=== PATIENT | female | born 1980 | race Caucasian/White ===

== ENCOUNTER 2019-08-28 12:07 | Observation (INO) | payer MEDICAID, MEDICARE ==
[~2019-08-28] VITALS: Ht 172.7 cm; Wt 88.6 kg
[2019-08-28] MEDS ORDERED: BENZTROPINE MESYLATE 2MG/2ML VIAL IM ONE (12:45)
[2019-08-28] MEDS ORDERED: LORazepam 2 MG/ML VIAL (J2060) IV STA (12:47)
[2019-08-28 13:02] LABS: VENOUS BASE EXCESS -5.2 (-2.0-2.0); VENOUS HCO3 21.9 MEQ/L (23.0-27.0); VENOUS O2 SATURATION 80.9 % (60.0-80.0); VENOUS PARTIAL PRESSURE CO2 48.4 mmHg (38.0-50.0); VENOUS PH 7.273 UNITS (7.330-7.430); VENOUS STANDARD HCO3 19.9 MEQ/L; VENOUS TOTAL CO2 23.4 MEQ/L (24.0-28.0)
[2019-08-28 13:11] LABS: BASO % 0.5 % (0.0-1.0); EOS # 0.1 10^3/uL (0.0-0.5); EOS % 2.1 % (0.0-3.0); HEMATOCRIT 42.2 % (36.0-47.0); HEMOGLOBIN 13.9 g/dl (12.0-15.5); LYMPH % 32.9 % (24.0-44.0); MEAN CORPUSCULAR HEMOGLOBIN 31.8 pg (27.0-33.0); MEAN CORPUSCULAR HGB CONC 32.9 g/dl (32.0-36.5); MEAN CORPUSCULAR VOLUME 96.6 fl (80.0-96.0); MONO # 0.3 10^3/uL (0.0-0.8); MONO % 5.1 % (0.0-5.0); NEUTROPHILS # 3.6 10^3/uL (1.5-8.5); NEUTROPHILS % 59.1 % (36.0-66.0); PLATELET COUNT, AUTOMATED 228 10^3/uL (150-450); RED BLOOD COUNT 4.37 10^6/uL (4.00-5.40); WHITE BLOOD COUNT 6.1 10^3/uL (4.0-10.0)
[2019-08-28] MEDS ORDERED: LEXA1TAB PO (13:18)
[2019-08-28] MEDS ORDERED: ZYPR2.5T2 PO (13:18)
[2019-08-28] MEDS ORDERED: WELLTAB38 PO (13:19)
[2019-08-28 13:30] LABS: AMPHETAMINES LEVEL URINE NEGATIVE (NEGATIVE); BARBITURATES URINE NEGATIVE (NEGATIVE); BENZODIAZEPINES URINE NEGATIVE (NEGATIVE); CANNABINOIDS URINE NEGATIVE (NEGATIVE); COCAINE METABOLITE URINE NEGATIVE (NEGATIVE); METHADONE URINE NEGATIVE (NEGATIVE); OPIATES URINE NEGATIVE (NEGATIVE); PHENCYCLIDINE URINE NEGATIVE (NEGATIVE)
[2019-08-28 13:37] LABS: HCG, SERUM QUALITATIVE NEGATIVE (NEGATIVE)
[2019-08-28 13:41] LABS: OSMOLALITY SERUM 290 MOSM/KG (275-295)
[2019-08-28 13:50] LABS: ACETAMINOPHEN LEVEL < 2.0 UG/ML (10.0-30.0); ALBUMIN 4.1 GM/DL (3.2-5.2); ALT/SGPT 68 U/L (12-78); BILIRUBIN,DIRECT < 0.1 MG/DL (0.0-0.2); BILIRUBIN,TOTAL 0.4 MG/DL (0.2-1.0); BLOOD UREA NITROGEN 11 MG/DL (7-18); CALCIUM LEVEL 9.2 MG/DL (8.5-10.1); CARBON DIOXIDE LEVEL 26 MEQ/L (21-32); CHLORIDE LEVEL 108 MEQ/L (98-107); CK-MB VALUE MASS < 1.0 NG/ML (<3.6); CPK CREATINE PHOSPHOKINASE 133 U/L (26-192); CREATININE FOR GFR 0.97 MG/DL (0.55-1.30); ETHYL ALCOHOL (ETHANOL) < 0.003 % (0.000-0.010); GLOMERULAR FILTRATION RATE > 60.0 (>60); GLUCOSE, FASTING 99 MG/DL (70-100); MB/CK RELATIVE INDEX 0.75 (< OR =4); POTASSIUM SERUM 4.2 MEQ/L (3.5-5.1); SALICYLATE LEVEL < 1.7 MG/DL (5.0-30.0); SODIUM LEVEL 139 MEQ/L (136-145); THYROID STIMULATING HORMONE 0.701 uIU/ML (0.358-3.740); TOTAL PROTEIN 7.7 GM/DL (6.4-8.2); TROPONIN I < 0.02 NG/ML (< 0.10)
--- NOTE | 2019-08-28 14:26 | REP ---
Head CT without contrast: History: Altered mental status. Comparison study: No comparison study. CT findings: Bone window settings demonstrate an intact bony calvarium. There is no evidence of skull fracture or incidental bony calvarial lesion. The visualized paranasal sinuses appear clear. No intraorbital abnormality is seen. On soft tissue window setting images; the lateral, third, and fourth ventricles are normal in size and position. Morales-white differentiation pattern is normal above and below the tentorium. There is physiologic calcification of the basal ganglia bilaterally. There are is no evidence of intracranial hemorrhage. No mass, edema, infarction, or midline shift is seen. No extra-axial fluid collection is appreciated. Impression: Negative noncontrast head CT. Electronically Signed by Taqueria Fraser MD 08/28/2019 02:17 P
[2019-08-28] MEDS ORDERED: NS 1,000 ML IV ONE (14:30)
--- NOTE | 2019-08-28 14:30 | REP ---
Portable chest x-ray: Single view. History: Altered mental status. Findings: The lungs are symmetrically aerated and clear. Pleural angles are sharp. Heart is not enlarged. Monitoring electrodes overlie the chest. Pulmonary vasculature is not increased. Impression: No active disease. Electronically Signed by Taqueria Fraser MD 08/28/2019 02:21 P
[2019-08-28] MEDS ORDERED: OXYB-54 PO (14:51)
[2019-08-28] MEDS ORDERED: IBUP200T45 PO (14:51)
[2019-08-28] MEDS ORDERED: BUPR1TAB52 PO (14:51)
[2019-08-28] MEDS ORDERED: PROP10TA56 PO (14:52)
--- NOTE | 2019-08-28 16:10 | HPEPDOC ---
[facility] Medical History & Physical Date of Admission Aug 28, 2019 Date of Service: Aug 28, 2019 History and Physical CHIEF COMPLAINT: anxiety HISTORY OF PRESENT ILLNESS: 38 yo female resident of [place] presents for episode of anxiety with involuntary spastic movement. Patient states she returned about one week ago from a conference in [place]. On the way back, she states she had a panic attack with delusions of persecution. Apparently Zyprexa and Wellbutrin were started by her provider. She states she had a similar panic attack about one year ago. She noted having a cough only while in her hotel room, with the heater on. No cough at any other time. She denies any sick contacts, other than her mother's boyfriend who was diagnosed with bronchitis two weeks ago. Denies chest pain, headaches, abdominal pain, N/V/D. Contacted [facility] - [phone] - spoke with nurse Cole. She states she was at their office today, and was sent to the ED for a panic attack. States there was an episode one week ago, with involuntarily flailing of her arms. She contacted the clinic, and at that her Wellbutrin was discontinued. Her Lexapro is currently being tapered down. In the office today, she was also having auditory hallucinations. Notes she was recently hospitalized 07/28/19 at [facility] psychiatric facility for panic attack/hallucinations. Further discussion with her mother - [phone], she states she had a manic type incident 3 years ago in [place], where she was hospitalized, and discharged with a diagnosis of paranoid schizophrenia. She didn't like the adverse effects of the medications, and slowly stopped taking them. She went to a conference on 08/18/19 in [place], as an advocate for [facility]. However after one day, the conference was cancelled due to the current concerns for infection. On her way home, she had a panic attack, and was admitted to a hospital in [place]. Her mother went to pick her up. Her psychiatrist was contacted, with changes to her meds. Her mother insists that propranolol was to be started today, wellbutrin and zyprexa were to be discontinued, and lexapro continued. She seems to be a reliable historian. Her mother also confirms that her daughter has had no upper respiratory type symptoms. PAST MEDICAL HISTORY: #urinary retention/spasticity? #psych history - schizophrenia? ALLERGIES: Please see below. REVIEW OF SYSTEMS: Negative except as per HPI. HOME MEDICATIONS: Please see below. PHYSICAL EXAMINATION: VITAL SIGNS: See below General: NAD, lying comfortably in bed HEENT: NC/AT, EOMI, PERRL Lungs: CTA B/L Heart: +S1S2, RRR Abd: soft, obese, NT, +BS Ext: no edema LABORATORY DATA: See below. MICROBIOLOGY: Please see below. ASSESSMENT: 38 yo female with psych history presents for what appears to be anxiety/panic attack, and spastic movements. Follows at [facility] with Dr. Brenda Oconnell. #anxiety - continue home meds, consider ativan as needed - d/w psych - recs for o/p f/u - continue propranolol and lexapro #spastic movements - concern for serotonin syndrome - d/w psych - states dosages are far too low for serotonin syndrome - recommending o/p f/u #URI - appears to be very unlikely - she states her cough was only in her hotel room with the heater on - likely environmental irritants/allergy for her cough - denies SOB, or contacts with known COVID-19 - respiratory panel pending - CXR WNL #DVT prophylaxis - mechanical Dispo: admitting for observation, anticipate discharge in 24 hours Vital Signs Vital Signs Date Time Temp Pulse Resp B/P (MAP) Pulse Ox O2 Delivery O2 Flow Rate FiO2 08/28/19 15:30 67 16 129/63 (85) 97 Room Air 08/28/19 15:13 98.3 Laboratory Data Labs 24H Laboratory Tests 2 08/28/19 12:46: Urine Color YELLOW, Urine Appearance CLEAR, Urine pH 6.0, Urine Specific [place] 1.006, Urine Protein NEGATIVE, Urine Glucose (UA) NEGATIVE, Urine Ketones NE GATIVE, Urine Blood NEGATIVE, Urine Nitrite NEGATIVE, Urine Bilirubin NEGATIVE, Urine Urobilinogen 0.2, Urine Leukocyte Esterase NEGATIVE, Urine WBC (Auto) 0, Urine RBC (Auto) 1, Urine Hyaline Casts (Auto) 0, Urine Bacteria (Auto) NEGATIVE, Urine Squamous Epithelial Cells 0, Urine Mucus (Auto) SMALL, Urine Sperm (Auto) 08/28/19 12:47: Immature Granulocyte % (Auto) 0.3, Neutrophils (%) (Auto) 59.1, Lymphocytes (%) (Auto) 32.9, Monocytes (%) (Auto) 5.1H, Eosinophils (%) (Auto) 2.1, Basophils (%) (Auto) 0.5, Neutrophils # (Auto) 3.6, Lymphocytes # (Auto) 2.0, Monocytes # (Auto) 0.3, Eosinophils # (Auto) 0.1, Basophils # (Auto) 0.0, Nucleated Red Blood Cells % (auto) 0.0, Blood Gas Bicarbonate Standard 19.9, Venous Blood pH 7.273L, Venous Blood Partial Pressure CO2 48.4, Venous Blood Partial Pressure O2 50.0, Venous Blood Total Carbon Dioxide 23.4L, Venous Blood HCO3 21.9L, Venous Blood Oxygen Saturation 80.9H, Venous Blood Base Excess -5.2L, Anion Gap 5L, Glomerular Filtration Rate > 60.0, Osmolality 290, Lactic Acid Level 3.2*H, Calcium Level 9.2, Total Bilirubin 0.4, Direct Bilirubin < 0.1, Aspartate Amino Transf (AST/SGOT) 50H, Alanine Aminotransferase (ALT/SGPT) 68, Alkaline Phosphatase 62, Ammonia < 10, Total Creatine Kinase 133, Creatine Kinase MB < 1.0, Creatine Kinase MB Relative Index 0.75, Troponin I < 0.02, Total Protein 7.7, Albumin 4.1, Albumin/Globulin Ratio 1.14, Thyroid Stimulating Hormone (TSH) 0.701, Human Chorionic Gonadotropin, Qual NEGATIVE, Salicylates Level < 1.7L, Urine Opiates Screen NEGATIVE, Urine Methadone Screen NEGATIVE, Acetaminophen Level < 2.0L, Urine Barbiturates Screen NEGATIVE, Urine Phencyclidine Screen NEGATIVE, Urine Amphetamines Screen NEGATIVE, Urine Benzodiazepines Screen NEGATIVE, Urine Cocaine Metabolite Screen NEGATIVE, Urine Cannabinoids Screen NEGATIVE, Ethyl Alcohol Level < 0.003 CBC/BMP Laboratory Tests 08/28/19 12:47 Microbiology Microbiology 08/28/19 Respiratory Virus Panel (PCR) (MARCELA) - Final, Complete 08/28/19 Blood Culture, Received Pending 08/28/19 Blood Culture, Received Pending Home Medications Scheduled Bupropion HCl (Bupropion HCl Sr) 100 Mg Tab.sr.12h, 100 MG PO DAILY patients mom states she has not taken in a week Escitalopram Oxalate (Lexapro) 10 Mg Tablet, 10 MG PO DAILY Olanzapine (Zyprexa) 2.5 Mg Tablet, 2.5 MG PO DAILY Oxybutynin Chloride (Oxybutynin Chloride ER) 5 Mg Tab.er.24, 5 MG PO DAILY Propranolol HCl (Propranolol HCl) 10 Mg Tablet, 10 MG PO TID new med not started yet Scheduled PRN Ibuprofen (Ibu-200) 200 Mg Tablet, 400 MG PO Q4H PRN for PAIN Allergies Coded Allergies: No Known Allergies (Verified Allergy, Unknown, 08/28/19) A-FIB/CHADSVASC A-FIB History Current/History of A-Fib/PAF?: No Current PO Anticoag Therapy: No LIZ LAZO MD Aug 28, 2019 16:10
[2019-08-28] MEDS: PROPRANOLOL 10 MG TAB PO SCH ×2 (18:11→21:56)
[2019-08-28 22:00] VITALS: BP 147/87
[2019-08-28] MEDS ORDERED: LORazepam 0.5 MG TAB PO PRN (22:45)
[2019-08-28 23:20] VITALS: BP 147/87
[2019-08-29] MEDS ORDERED: HALOPERIDOL 5MG/ML VIAL (J1630 PER 1) IM PRN (01:15)
[2019-08-29] MEDS ORDERED: METOCLOPRAMIDE INJ 10MG/2ML VIAL (J2765 PER 1) IV ONE (04:15)
[2019-08-29 05:54] LABS: HEMATOCRIT 42.1 % (36.0-47.0); HEMOGLOBIN 14.5 g/dl (12.0-15.5); MEAN CORPUSCULAR HEMOGLOBIN 32.9 pg (27.0-33.0); MEAN CORPUSCULAR HGB CONC 34.4 g/dl (32.0-36.5); MEAN CORPUSCULAR VOLUME 95.5 fl (80.0-96.0); PLATELET COUNT, AUTOMATED 211 10^3/uL (150-450); RED BLOOD COUNT 4.41 10^6/uL (4.00-5.40)
[2019-08-29 06:00] VITALS: BP 122/75
[2019-08-29 06:20] LABS: ALBUMIN 3.6 GM/DL (3.2-5.2); ALT/SGPT 68 U/L (12-78); BILIRUBIN,TOTAL 0.5 MG/DL (0.2-1.0); BLOOD UREA NITROGEN 10 MG/DL (7-18); CALCIUM LEVEL 8.5 MG/DL (8.5-10.1); CARBON DIOXIDE LEVEL 23 MEQ/L (21-32); CHLORIDE LEVEL 111 MEQ/L (98-107); CREATININE FOR GFR 0.75 MG/DL (0.55-1.30); GLOMERULAR FILTRATION RATE > 60.0 (>60); GLUCOSE, FASTING 127 MG/DL (70-100); POTASSIUM SERUM 3.6 MEQ/L (3.5-5.1); SODIUM LEVEL 138 MEQ/L (136-145); TOTAL PROTEIN 7.6 GM/DL (6.4-8.2)
[2019-08-29] MEDS ORDERED: INFLUENZA QUADRIVALENT PF VACCINE 0.5ML SYRINGE (90686) IM ONE ×2 (09:00→13:00)
[2019-08-29] MEDS ORDERED: OLANZapine 2.5MG TABLET PO SCH (09:00)
[2019-08-29] MEDS ORDERED: buPROPion (WELLBUTRIN SR) 100 MG SR TAB PO SCH (09:00)
[2019-08-29] MEDS ORDERED: oxyBUTYnin *DITROPAN XL* 5 MG TABCR PO SCH (09:00)
[2019-08-29] MEDS ORDERED: ESCITALOPRAM OXALATE 10 MG TAB (LEXAPRO) PO SCH ×2 (09:00)
[2019-08-29 09:25] VITALS: BP 125/77
[2019-08-29] MEDS: PROPRANOLOL 10 MG TAB PO SCH (09:25)
--- NOTE | 2019-08-29 10:39 | MHCRPDOC ---
[facility] Consultation Consultation Consult Luci Maldonado MRN: N/A Date of : N/A Date of Service: 08/29/2019 Chief Complaint "I do not want to get the coronavirus." History of Present Illness The patient a 38-year-old woman is admitted to medicine after reportedly having a panic attack. She was admitted out of abundance of caution. She reports some flailing behavior and concerns for serotonin syndrome as she had been recently started on a combination of antidepressants by her outpatient psychiatrist. When the patient was met with she reported that she had had some anxiety about the current situation. The medical team ruled out serotonin storm and wanted a quick consultation about her medications, which her outpatient had recommended be reduced to Lexapro. The patient reports that all of her psychiatric symptoms other than anxiety are stable at this time. She reportedly had a panic attack for several minutes where she was worried about being chased by police several days ago prior to her returning to the area from a conference. This was after she was started on Wellbutrin and Zyprexa. These were discontinued and the symptoms reportedly improved. Collateral information gathered by the medical team report that the patient has had some involuntarily flailing of her arms. Review Of Systems Depression: Reports episodes of depression in the past, but no current ones. Anxiety: The patient denies any excessive worry associated with physical symptoms. They deny any experience of discreet panic in the past. Karla: Reportedly has a history of karla in the past, however, vague and ill described. Psychotic: Report episodes of auditory hallucinations in the past, but none currently. Trauma: The patient denies any traumatic events associated with nightmares or intrusive thoughts. Borderline: The patient screens negative for borderline personality at this junction. Past Psychiatric History Reportedly has been hospitalized 5 times in [place] and no records available last 3 years ago for reported "karla". Currently treated with Lexapro by Brenda Oconnell at [facility]. Denies any significant safety issues at this time, reports having ideation in the distant past. Chart review reveals a hospitalization in July for panic attacks at [facility]. Family Psychiatric History The patient denies/is unaware any history of mental health history including addictions and suicide. Social History The patient lives in the local area. She reports that she has no significant dr ug use, alcohol use or tobacco use at this time. Medical History Patient has no significant past medical history. Allergies See below Mental Status Examination General: Well dressed with good hygiene Speech: Spontaneous and fluid Thought processes: Linear and logical MSK: Smooth and coordinated gait, no signs of tremors or involuntary orofacial movements Thought content: Future orientated Abstract reasoning, and computation: Intact Description of associations: Intact Description of abnormal or psychotic thoughts: Denies any suicidal or homicidal ideation. Denies any auditory or visual hallucinations. Does not appear to be responding to internal stimuli. Does not appear to be endorsing any bizarre or paranoid ideation. Judgment: fair Insight: fair Orientation: Alert and orientated 3 Cognition: Grossly normal Recent and remote memory: Intact Attention span and concentration: Intact Fund of knowledge: Adequate Mood: "okay" Affect: Euthymic with a full range Diagnoses Unspecified anxiety disorder versus conversion. Assessment and Plan The patient is a 38-year-old woman presents for medical evaluation of involuntarily flailing of her arms, at this time it does not appear to be serotonin storm as is ruled out and she is medically stable. She reportedly has a diagnosis of paranoid schizophrenia, however, when I spoke to her she did not demonstrate any signs of psychosis as she has been reduced down to Lexapro at this time. She has screened positive for possibly affective psychosis in the past, however, she reports that currently her symptoms are at baseline. She states that at times she will have auditory hallucinations, but they are at thei r chronic baseline and she is not having them currently while in the room. The presenting complaint appears primarily related to anxiety versus conversion disorder, however, outpatient psychometry will be needed to determine ultimate diagnosis. The patient prefers to have her outpatient psychiatrist manage her medications and she is not interested in having them altered. The patient at this time does not meet involuntary criteria as she is not suicidal, homicidal and she gives me no objective signs of psychosis at this time, auditory hallucinations in individuals with borderline personality disorder can be frequently mislabeled, which could be a diagnostic possibility, however, at this time she is unwilling to stay in the hospital as she does not want to get the coronavirus. I believe due to the factors above and her normal mental status exam that she does not meet involuntary criteria and declines a voluntary admission and thus must be discharged in good norm. I additionally agree with her at this time that her risk and benefits of staying in the hospital is not ideal given her fear of the coronavirus and being in a communal unit, recommended close followup with her outpatient psychiatrist who she will be seen via telehealth in the next few days. Disposition No psychiatric inpatient treatment recommended, patient does not want medication adjustment. Time Spent 30 minutes. Sunday Vital Signs Vital Signs Date Time Temp Pulse Resp B/P (MAP) Pulse Ox O2 Delivery O2 Flow Rate FiO2 08/29/19 09:25 86 125/77 08/29/19 06:00 98.0 17 96 Room Air Laboratory Data 24H Labs Laboratory Tests 2 08/28/19 12:46: Urine Color YELLOW, Urine Appearance CLEAR, Urine pH 6.0, Urine Specific [place] 1.006, Urine Protein NEGATIVE, Urine Glucose (UA) NEGATIVE, Urine Ketones NEGATIVE, Urine Blood NEGATIVE, Urine Nitrite NEGATIVE, Urine Bilirubin NEGATIVE, Urine Urobilinogen 0.2, Urine Leukocyte Esterase NEGATIVE, Urine WBC (Auto) 0, Urine RBC (Auto) 1, Urine Hyaline Casts (Auto) 0, Urine Bacteria (Auto) NEGATIVE, Urine Squamous Epithelial Cells 0, Urine Mucus (Auto) SMALL, Urine Sperm (Auto) 08/28/19 12:47: Immature Granulocyte % (Auto) 0.3, Neutrophils (%) (Auto) 59.1, Lymphocytes (%) (Auto) 32.9, Monocytes (%) (Auto) 5.1H, Eosinophils (%) (Auto) 2.1, Basophils (%) (Auto) 0.5, Neutrophils # (Auto) 3.6, Lymphocytes # (Auto) 2.0, Monocytes # (Auto) 0.3, Eosinophils # (Auto) 0.1, Basophils # (Auto) 0.0, Nucleated Red Blood Cells % (auto) 0.0, Blood Gas Bicarbonate Standard 19.9, Venous Blood pH 7.273L, Venous Blood Partial Pressure CO2 48.4, Venous Blood Partial Pressure O2 50.0, Venous Blood Total Carbon Dioxide 23.4L, Venous Blood HCO3 21.9L, Venous Blood Oxygen Saturation 80.9H, Venous Blood Base Excess -5.2L, Anion Gap 5L, Glomerular Filtration Rate > 60.0, Osmolality 290, Lactic Acid Level 3.2*H, Calcium Level 9.2, Total Bilirubin 0.4, Direct Bilirubin < 0.1, Aspartate Amino Transf (AST/SGOT) 50H, Alanine Aminotransferase (ALT/SGPT) 68, Alkaline Phosphatase 62, Ammonia < 10, Total Creatine Kinase 133, Creatine Kinase MB < 1.0, Creatine Kinase MB Relative Index 0.75, Troponin I < 0.02, Total Protein 7.7, Albumin 4.1, Albumin/Globulin Ratio 1.14, Thyroid Stimulating Hormone (TSH) 0.701, Human Chorionic Gonadotropin, Qual NEGATIVE, Salicylates Level < 1.7L, Urine Opiates Screen NEGATIVE, Urine Methadone Screen NEGATIVE, Acetaminophen Level < 2.0L, Urine Barbiturates Screen NEGATIVE, Urine Phencyclidine Screen NEGATIVE, Urine Amphetamines Screen NEGATIVE, Urine Benzodiazepines Screen NEGATIVE, Urine Cocaine Metabolite Screen NEGATIVE, Urine Cannabinoids Screen NEGATIVE, Ethyl Alcohol Level < 0.003 08/28/19 17:40: Lactic Acid Followup at 4 Hours 1.1 08/29/19 05:21: Nucleated Red Blood Cells % (auto) 0.0, Anion Gap 4L, Glomerular Filtration Rate > 60.0, Calcium Level 8.5, Total Bilirubin 0.5, Aspartate Amino Transf (AST/SGOT) 45H, Alanine Aminotransferase (ALT/SGPT) 68, Alkaline Phosphatase 61, Total Protein 7.6, Albumin 3.6, Albumin/Globulin Ratio 0.90L Home Medications Current Medications Current Medications Medications (Trade) Dose Ordered Sig/Rosanna Route PRN Reason Start Time Stop Time Status Last Admin Dose Admin Bupropion HCl (Wellbutrin Sr) 100 mg DAILY PO 08/29/19 09:00 08/28/19 16:24 DC Escitalopram Oxalate (Lexapro) 10 mg DAILY PO 08/29/19 09:00 08/28/19 16:28 DC Escitalopram Oxalate (Lexapro) 10 mg DAILY PO 08/29/19 09:00 08/29/19 09:23 Haloperidol (Haldol) 2 mg Q4HP PRN IM AGITATION 08/29/19 01:15 08/29/19 01:36 Home Med (Med Rec Complete!) ASDIRECTED XX 08/28/19 15:00 08/28/19 14:54 DC Lorazepam (Ativan) 0.5 mg Q6HP PRN PO ANXIETY 08/28/19 22:45 08/29/19 01:05 Lorazepam (Ativan) 1 mg STAT STAT IV 08/28/19 12:47 08/28/19 12:48 DC 08/28/19 12:53 Olanzapine (ZyPREXA) 2.5 mg DAILY PO 08/29/19 09:00 08/28/19 16:48 DC Oxybutynin Chloride (Ditropan Xl) 5 mg DAILY PO 08/29/19 09:00 08/29/19 09:23 Propranolol HCl (Inderal) 10 mg TID PO 08/28/19 16:00 08/29/19 09:25 Scheduled Escitalopram Oxalate (Lexapro) 10 Mg Tablet, 10 MG PO DAILY, (Reported) Oxybutynin Chloride (Oxybutynin Chloride ER) 5 Mg Tab.er.24, 5 MG PO DAILY, (Reported) Propranolol HCl (Propranolol HCl) 10 Mg Tablet, 10 MG PO TID, (Reported) new med not started yet Scheduled PRN Ibuprofen (Ibu-200) 200 Mg Tablet, 400 MG PO Q4H PRN for PAIN, (Reported) Allergies Coded Allergies: No Known Allergies (Verified Allergy, Unknown, 08/28/19) DEONNA FALCON DO Aug 29, 2019 10:39
--- NOTE | 2019-08-29 11:52 | DS.PDOC ---
Discharge Summary General Date of Admission Aug 28, 2019 at 12:08 Date of Discharge 08/29/19 Specialist/Consultants Involve: DEONNA FALCON DO Discharge Summary PROCEDURES PERFORMED DURING STAY: [None]. ADMITTING DIAGNOSES: 1. anxiety DISCHARGE DIAGNOSES: 1. possible somatic disorder COMPLICATIONS/CHIEF COMPLAINT: Anxiety. HOSPITAL COURSE: Patient presented for anxiety attack, muscle spasms, involuntarily movements. Admitted for further evaluation and treatment. Discussed at length with psychiatry and her family. Deemed safe for discharge home with outpatient follow up - likely somatic disorder at this time. DISCHARGE MEDICATIONS: Please see below. ALLERGIES: Please see below. PHYSICAL EXAMINATION ON DISCHARGE: VITAL SIGNS: Please see below. GENERAL: NAD HEENT: NC/AT, EOMI, PERRL Lungs: CTA B/L Heart: +S1S2, RRR Abd: soft, NT, +BS Ext: no edema LABORATORY DATA: Please see below. ACTIVITY: [As tolerated]. DISPOSITION: Discharge home DISCHARGE INSTRUCTIONS: 1. Follow up with psychiatry in 3-5 days or as scheduled. 2. PCP in 3-5 days. DISCHARGE CONDITION: [Stable]. TIME SPENT ON DISCHARGE: 35 minutes. Vital Signs/I&Os Vital Signs Date Time Temp Pulse Resp B/P (MAP) Pulse Ox O2 Delivery O2 Flow Rate FiO2 08/29/19 09:25 86 125/77 08/29/19 06:00 98.0 17 96 Room Air I&O- Last 24 Hours up to 6 AM 08/29/19 06:00 Intake Total 2467 ml Balance 2467 ml Laboratory Data Labs 24H Laboratory Tests 2 08/28/19 12:46: Urine Color YELLOW, Urine Appearance CLEAR, Urine pH 6.0, Urine Specific [place] 1.006, Urine Protein NEGATIVE, Urine Glucose (UA) NEGATIVE, Urine Ketones NEGATIVE, Urine Blood NEGATIVE, Urine Nitrite NEGATIVE, Urine Bilirubin NEGATIVE, Urine Urobilinogen 0.2, Urine Leukocyte Esterase NEGATIVE, Urine WBC (Auto) 0, Urine RBC (Auto) 1, Urine Hyaline Casts (Auto) 0, Urine Bacteria (Auto) NEGATIVE, Urine Squamous Epithelial Cells 0, Urine Mucus (Auto) SMALL, Urine Sperm (Auto) 08/28/19 12:47: Immature Granulocyte % (Auto) 0.3, Neutrophils (%) (Auto) 59.1, Lymphocytes (%) (Auto) 32.9, Monocytes (%) (Auto) 5.1H, Eosinophils (%) (Auto) 2.1, Basophils (%) (Auto) 0.5, Neutrophils # (Auto) 3.6, Lymphocytes # (Auto) 2.0, Monocytes # (Auto) 0.3, Eosinophils # (Auto) 0.1, Basophils # (Auto) 0.0, Nucleated Red Blood Cells % (auto) 0.0, Blood Gas Bicarbonate Standard 19.9, Venous Blood pH 7.273L, Venous Blood Partial Pressure CO2 48.4, Venous Blood Partial Pressure O2 50.0, Venous Blood Total Carbon Dioxide 23.4L, Venous Blood HCO3 21.9L, Venous Blood Oxygen Saturation 80.9H, Venous Blood Base Excess -5.2L, Anion Gap 5L, Glomerular Filtration Rate > 60.0, Osmolality 290, Lactic Acid Level 3.2*H, Calcium Level 9.2, Total Bilirubin 0.4, Direct Bilirubin < 0.1, Aspartate Amino Transf (AST/SGOT) 50H, Alanine Aminotransferase (ALT/SGPT) 68, Alkaline Phosphatase 62, Ammonia < 10, Total Creatine Kinase 133, Creatine Kinase MB < 1.0, Creatine Kinase MB Relative Index 0.75, Troponin I < 0.02, Total Protein 7.7, Albumin 4.1, Albumin/Globulin Ratio 1.14, Thyroid Stimulating Hormone (TSH) 0.701, Human Chorionic Gonadotropin, Qual NEGATIVE, Salicylates Level < 1.7L, Urine Opiates Screen NEGATIVE, Urine Methadone Screen NEGATIVE, Acetaminophen Level < 2.0L, Urine Barbiturates Screen NEGATIVE, Urine Phencyclidine Screen NEGATIVE, Urine Amphetamines Screen NEGATIVE, Urine Benzodiazepines Screen NEGATIVE, Urine Cocaine Metabolite Screen NEGATIVE, Urine Cannabinoids Screen NEGATIVE, Ethyl Alcohol Level < 0.003 08/28/19 17:40: Lactic Acid Followup at 4 Hours 1.1 08/29/19 05:21: Nucleated Red Blood Cells % (auto) 0.0, Anion Gap 4L, Glomerular Filtration Rate > 60.0, Calcium Level 8.5, Total Bilirubin 0.5, Aspartate Amino Transf (AST/SGOT) 45H, Alanine Aminotransferase (ALT/SGPT) 68, Alkaline Phosphatase 61, Total Protein 7.6, Albumin 3.6, Albumin/Globulin Ratio 0.90L CBC/BMP Laboratory Tests 08/28/19 12:47 08/29/19 05:21 Microbiology Microbiology 08/28/19 Respiratory Virus Panel (PCR) (MARCELA) - Final, Complete 08/28/19 Blood Culture, Received Pending 08/28/19 Blood Culture, Received Pending Discharge Medications Scheduled Escitalopram Oxalate (Lexapro) 10 Mg Tablet, 10 MG PO DAILY, (Reported) Oxybutynin Chloride (Oxybutynin Chloride ER) 5 Mg Tab.er.24, 5 MG PO DAILY, (Reported) Propranolol HCl (Propranolol HCl) 10 Mg Tablet, 10 MG PO TID, (Reported) new med not started yet Scheduled PRN Ibuprofen (Ibu-200) 200 Mg Tablet, 400 MG PO Q4H PRN for PAIN, (Reported) Allergies Coded Allergies: No Known Allergies (Verified Allergy, Unknown, 08/28/19) LIZ LAZO MD Aug 29, 2019 11:52
--- NOTE | 2019-08-29 18:37 | ECGEPIP ---
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
== END 2019-08-29 13:37 | disposition home or self-care (01) ==
LOC: M ED 12:07 → EDBD 12:07 → M ED INP 12:08 → ENRESERV 15:54 → M MSPAV 17:00
PROVIDERS: ADMIT Internal Medicine; ATTEND Internal Medicine
DX: F41.9 Anxiety disorder, unspecified (principal); M62.838 Other muscle spasm; R25.9 Unspecified abnormal involuntary movements; R05 Cough; F99 Mental disorder, not otherwise specified; Z79.899 Other long term (current) drug therapy
CPT/HCPCS: 36415; 70450; 71045; 80048; 80053; 80076; 80307; 81001; 82140; 82550; 82553; 82803; 83605; 83930; 84145; 84443; 84484; 84703; 85025; 85027; 87040; 87486; 87581; 87633; 87798; 93005; 93041; 96361; 96372; 96374; 96375; 99285; G0378; G0480; J1630; J2060; J2765

== ENCOUNTER 2019-10-13 12:11 | Emergency (ER) | payer MEDICARE ==
[~2019-10-13] VITALS: Ht 172.7 cm; Wt 90.0 kg
[~2019-10-13 12:11] MED LIST: BUPR1TAB52 PO; IBUP200T45 PO; LEXA1TAB PO; OXYB-54 PO; PROP10TA56 PO; WELLTAB38 PO; ZYPR2.5T2 PO
[2019-10-13] MEDS ORDERED: OLAN5TAB PO (12:33)
[2019-10-13] MEDS ORDERED: ZYPR5TAB2 PO (12:33)
[2019-10-13] MEDS ORDERED: LAMO25TA4 PO (12:33)
[2019-10-13] MEDS ORDERED: HYDR-3363 PO (12:33)
[2019-10-13] MEDS ORDERED: ESCI10TA2 PO (12:33)
[2019-10-13] MEDS ORDERED: ALPRAZolam 0.5 MG TAB PO ONE (13:15)
[2019-10-13 13:47] LABS: HEMATOCRIT 40.6 % (36.0-47.0); HEMOGLOBIN 13.7 g/dl (12.0-15.5); MEAN CORPUSCULAR HEMOGLOBIN 31.4 pg (27.0-33.0); MEAN CORPUSCULAR HGB CONC 33.7 g/dl (32.0-36.5); MEAN CORPUSCULAR VOLUME 92.9 fl (80.0-96.0); PLATELET COUNT, AUTOMATED 222 10^3/uL (150-450); RED BLOOD COUNT 4.37 10^6/uL (4.00-5.40); WHITE BLOOD COUNT 6.9 10^3/uL (4.0-10.0)
[2019-10-13 14:19] LABS: HCG, SERUM QUALITATIVE NEGATIVE (NEGATIVE)
[2019-10-13 14:29] LABS: BLOOD UREA NITROGEN 12 MG/DL (7-18); CALCIUM LEVEL 9.1 MG/DL (8.5-10.1); CARBON DIOXIDE LEVEL 25 MEQ/L (21-32); CHLORIDE LEVEL 107 MEQ/L (98-107); CREATININE FOR GFR 0.89 MG/DL (0.55-1.30); GLOMERULAR FILTRATION RATE > 60.0 (>60); GLUCOSE, FASTING 94 MG/DL (70-100); POTASSIUM SERUM 4.1 MEQ/L (3.5-5.1); SODIUM LEVEL 141 MEQ/L (136-145)
[2019-10-13 14:30] LABS: ACETAMINOPHEN LEVEL < 2.0 UG/ML (10.0-30.0); ALBUMIN 3.8 GM/DL (3.2-5.2); ALT/SGPT 30 U/L (12-78); BILIRUBIN,DIRECT 0.1 MG/DL (0.0-0.2); BILIRUBIN,TOTAL 0.5 MG/DL (0.2-1.0); ETHYL ALCOHOL (ETHANOL) < 0.003 % (0.000-0.010); SALICYLATE LEVEL < 1.7 MG/DL (5.0-30.0); TOTAL PROTEIN 7.1 GM/DL (6.4-8.2)
[2019-10-13] MEDS ORDERED: LIDOCAINE 2% 5ML JELLY UROJET TOP ONE (16:15)
[2019-10-13 17:24] LABS: AMPHETAMINES LEVEL URINE NEGATIVE (NEGATIVE); BARBITURATES URINE NEGATIVE (NEGATIVE); BENZODIAZEPINES URINE POSITIVE (NEGATIVE); CANNABINOIDS URINE NEGATIVE (NEGATIVE); COCAINE METABOLITE URINE NEGATIVE (NEGATIVE); METHADONE URINE NEGATIVE (NEGATIVE); OPIATES URINE NEGATIVE (NEGATIVE); PHENCYCLIDINE URINE NEGATIVE (NEGATIVE)
--- NOTE | 2019-10-13 18:44 | ECGEPIP ---
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
[2019-10-13] MEDS ORDERED: lamoTRIgine 25 MG TAB PO ONE (20:00)
[2019-10-13] MEDS ORDERED: OLANZapine 5 MG TAB PO ONE (20:00)
[2019-10-13] MEDS ORDERED: PROPRANOLOL 10 MG TAB PO ONE (20:00)
[2019-10-13 20:02] VITALS: BP 138/66
[2019-10-14 00:44] VITALS: BP 132/82
== END 2019-10-14 00:47 | disposition short-term general hospital (02) ==
LOC: M ED 12:11
DX: R45.851 Suicidal ideations (principal); F33.9 Major depressive disorder, recurrent, unspecified; F41.9 Anxiety disorder, unspecified; F60.9 Personality disorder, unspecified; Z79.899 Other long term (current) drug therapy
CPT/HCPCS: 36415; 80048; 80076; 80307; 84443; 84703; 85027; 93005; 99285; G0480